=== PATIENT | female | born 1955 | race Hispanic/Latino ===

== ENCOUNTER → 2018-06-14 | Outpatient (CLI) | payer MEDICARE ==
[~2018-06-14] MED LIST: ATORVASTATIN CA20 MG PO; BACTROBAN OINT22 GM EXT; CEFDINIR300 MG PO; CIPROFLOXACIN500 M1 PO; CYCLOBENZAPRINE5 MG PO; GLIMEPIRIDE2 MG PO; HYDROCODON-ACE1 EA11 PO; HYDROXYZINE HCL25 MG PO; INSULIN APIDRA SC; KCL PO; LASIX20 MG PO; LASIX40 MG PO; LYRICA75 MG PO; MACROBID 100 M100 MG PO; METFORMIN HCL500 MG PO; MONTELUKAST SOD10 MG PO; MONTELUKAST SODI4 MG; MUCUS AND COUG1 EACH PO; NEXIUM40 MG PO; POTASSIUM CHLO10 MEQ PO; SYMBICORT 16010.2 GM IH; TAMSULOSIN HCL0.4 MG PO; ULTRAM50 MG PO; XOPENEX HFA15 GM INH; Z.0.CLINDAMYCIN HC15 PO; Z.0.FUROSEMIDE40 MG PO; Z.0.LEVEMIR 3M100 UN SQ; Z.0.PREDNISONE10 MG PO; Z.0.SIMVASTATIN40 MG PO; Z.0.SINGULAIR10 MG PO; [UNRECOGNIZED DRUG - OTHER] PO; [UNRECOGNIZED DRUG - REMARK] PO
== END ==
LOC: RAD 14:25
PROVIDERS: ATTEND Podiatrist Foot & Ankle Surgery
DX: G57.61 Lesion of plantar nerve, right lower limb (principal)
CPT/HCPCS: 93925